=== PATIENT | female | born 1980 | race Two or more races ===

== ENCOUNTER → 2018-09-21 | Outpatient (CLI) | payer OTHER ==
--- NOTE | 2018-09-21 14:56 | REP ---
Right foot series: Four views. History: Injury. Findings: Four views of the right foot demonstrate plantar calcaneal spurring. Overall mineralization pattern is normal. Bones, joints and soft tissues are otherwise unremarkable. Impression: Plantar heel spur. No acute bony abnormality. Electronically Signed by Zion Honeycutt MD 09/21/2018 04:58 P
== END ==
LOC: M LRY 13:13
PROVIDERS: ATTEND Physician Assistant
DX: M77.31 Calcaneal spur, right foot (principal); S99.921A Unspecified injury of right foot, initial encounter; X58.XXXA Exposure to other specified factors, initial encounter; Y92.9 Unspecified place or not applicable
CPT/HCPCS: 73630; G0463

== ENCOUNTER → 2019-01-10 | Outpatient (REF) | payer OTHER | LOC: M SFHCLERA 11:17 | PROVIDERS: ATTEND Nurse Practitioner Family | DX: J02.9 Acute pharyngitis, unspecified (principal) ==

== ENCOUNTER 2020-11-10 19:05 | Emergency (ER) | payer OTHER ==
[~2020-11-10] VITALS: Ht 160 cm; Wt 70.5 kg
--- OUTSIDE RECORDS SUMMARY | 2020-11-10 19:11 | CCD ---
Author Author [facility] Organization [facility] Address Unknown Phone Unavailable Care Team Providers Care Welding Manager Name Role Phone Yoli AGUILLON MD Unavailable Unavailable Yoli AGUILLON MD Unavailable Unavailable Yoli AGUILLON MD Unavailable Unavailable Yoli AGUILLON MD Unavailable Unavailable Yoli AGUILLON MD Unavailable Unavailable Yoli AGUILLON MD Unavailable Unavailable Yoli AGUILLON MD Unavailable Unavailable Yoli AGUILLON MD Unavailable Unavailable Yoli AGUILLON MD Unavailable Unavailable Yoli AGUILLON MD Unavailable Unavailable Yoli AGUILLON MD Unavailable Unavailable Yoli AGUILLON MD Unavailable Unavailable Yoli AGUILLON MD Unavailable Unavailable Yoli AGUILLON MD Unavailable Unavailable Yoli AGUILLON MD Unavailable Unavailable Yoli AGUILLON MD Unavailable Unavailable Yoli AGUILLON MD Unavailable Unavailable Yoli AGUILLON MD Unavailable Unavailable Yoli AGUILLON MD Unavailable Unavailable Yoli AGUILLON MD Unavailable Unavailable Yoli AGUILLON MD Unavailable Unavailable Yoli AGUILLON MD Unavailable Unavailable Yoli AGUILLON MD Unavailable Unavailable Yoli AGUILLON MD Unavailable Unavailable Yoli AGUILLON MD Unavailable Unavailable Yoli AGUILLON MD Unavailable Unavailable Yoli AGUILLON MD Unavailable Unavailable Yoli AGUILLON MD Unavailable Unavailable Yoli AGUILLON MD Unavailable Unavailable Yoli AGUILLON MD Unavailable Unavailable Yoli AGUILLON MD Unavailable Unavailable Yoli AGUILLON MD Unavailable Unavailable Yoli AGUILLON MD Unavailable Unavailable Yoli AGUILLON MD Unavailable Unavailable Yoli AGUILLON MD Unavailable Unavailable Yoli AGUILLON MD Unavailable Unavailable Yoli AGUILLON MD Unavailable Unavailable Re-disclosure Warning The records that you are about to access may contain information from federally-assisted alcohol or drug abuse programs. If such information is present, then the following federally mandated warning applies: This information has been disclosed to you from records protected by federal confidentiality rules (42 CFR part 2). The federal rules prohibit you from making any further disclosure of this information unless further disclosure is expressly permitted by the written consent of the person to whom it pertains or as otherwise permitted by 42 CFR part 2. A general authorization for the release of medical or other information is NOT sufficient for this purpose. The Federal rules restrict any use of the information to criminally investigate or prosecute any alcohol or drug abuse patient.The records that you are about to access may contain highly sensitive health information, the redisclosure of which is protected by Article 27-F of the [facility] Public Health law. If you continue you may have access to information: Regarding HIV / AIDS; Provided by facilities licensed or operated by the [facility] Office of Mental Health; or Provided by the [facility] Office for People With Developmental Disabilities. If such information is present, then the following [facility] mandated warning applies: This information has been disclosed to you from confidential records which are protected by state law. State law prohibits you from making any further disclosure of this information without the specific written consent of the person to whom it pertains, or as otherwise permitted by law. Any unauthorized further disclosure in violation of state law may result in a fine or assisted sentence or both. A general authorization for the release of medical or other information is NOT sufficient authorization for further disc losure. Family History Family Member Name Family Member Gender Family Member Status Date o f Status Description Data Source(s) Unknown Unknown Problem [facility] ([facility]) Encounters Encounter Providers Location Date Indications Data Source(s ) Outpatient Attender: MATTI AGUILLON MD 2020 11:55:00 AM EST - 11/10/2020 12:55:00 PM [facility] Insurance Providers Payer name Policy type / Coverage type Policy ID Covered green party ID Covered green party's relationship to arevalo Policy Arevalo Plan Information [facility] [id number] [facility] [id number] [facility] [employer] - O/P [id number] 01 [id number] ANSI-Not a Secondary Insurance [id number] ANSI-Not a Secondary Insurance [id number] [place] [id number] Commercial [id number] Family Dependent [id number]
[2020-11-10 20:33] LABS: BASO % 0.4 % (0.0-1.0); EOS # 0.2 10^3/uL (0.0-0.5); EOS % 2.9 % (0.0-3.0); HEMATOCRIT 42.3 % (36.0-47.0); HEMOGLOBIN 13.8 g/dl (12.0-15.5); LYMPH # 2.6 10^3/uL (1.5-5.0); LYMPH % 32.9 % (24.0-44.0); MEAN CORPUSCULAR HEMOGLOBIN 29.9 pg (27.0-33.0); MEAN CORPUSCULAR HGB CONC 32.6 g/dl (32.0-36.5); MEAN CORPUSCULAR VOLUME 91.6 fl (80.0-96.0); MONO # 0.6 10^3/uL (0.0-0.8); MONO % 7.3 % (0.0-5.0); NEUTROPHILS # 4.5 10^3/uL (1.5-8.5); NEUTROPHILS % 56.2 % (36.0-66.0); PLATELET COUNT, AUTOMATED 205 10^3/uL (150-450); RED BLOOD COUNT 4.62 10^6/uL (4.00-5.40)
--- OUTSIDE RECORDS SUMMARY | 2020-11-10 20:35 | CCD ---
Author Author [facility] Organization [facility] Address Unknown Phone Unavailable Care Team Providers Care Emt Dispatcher Name Role Phone Yoli AGUILLON MD Unavailable [...] is protected by Article 27-F of the [facility] Public Health law. If you continue you may have access to information: Regarding HIV / AIDS; Provided by facilities licensed or operated by the [facility] Office of Mental Health; or Provided by the [facility] Office for People With Developmental Disabilities. If such information is present, then the following [facility] mandated warning applies: This information has [...] law may result in a fine or retirement sentence or both. A general authorization for [...] 11:55:00 AM EST - 11/10/2020 12:55:00 PM EST [facility] Insurance Providers Payer name Policy type / Coverage type Policy ID Covered libertarian ID Covered libertarian's relationship to arevalo Policy Arevalo Plan Information [employer] [facility] [id number] [facility] [id number] [employer] - O/P [id number] 01 [id number] ANSI-Not a Secondary Insurance [id number] ANSI-Not a Secondary Insurance [id number] [place] [address] Commercial [id number] Family Dependent [id number]
[2020-11-10 21:01] LABS: ALBUMIN 3.6 GM/DL (3.2-5.2); BILIRUBIN,DIRECT 0.2 MG/DL (0.0-0.2); BILIRUBIN,TOTAL 0.4 MG/DL (0.2-1.0); TOTAL PROTEIN 6.9 GM/DL (6.4-8.2)
[2020-11-10 22:11] VITALS: BP 112/60
== END 2020-11-10 22:16 | disposition home or self-care (01) ==
LOC: M ED 19:05
DX: R10.9 Unspecified abdominal pain (principal)

== ENCOUNTER → 2021-01-19 | Outpatient (CLI) | payer OTHER ==
--- NOTE | 2021-01-19 11:02 | REP ---
INDICATION: RIGHT UPPER QUADRANT REBOUND ABDOMINAL TENDERNESS. COMPARISON: None TECHNIQUE/RADIOTRACER AND DOSE: FOLLOWING THE INTRAVENOUS ADMINISTRATION OF 6.6 MCI TECHNETIUM 99 M-MEBROFENIN, MULTIPLE IMAGES OF THE RIGHT UPPER QUADRANT ARE PERFORMED FOR 60 MINUTES. NEXT 8 OZ OF ENSURE ENLIVE IS INGESTED AND FURTHER IMAGING IS PERFORMED FOR 65 MINUTES. FINDINGS: THE GALLBLADDER IS VISUALIZED AT 15 MINUTES POST INJECTION. THERE IS BILIARY TO BOWEL TRANSIT AT 25 POST INJECTION. THERE IS NO SCINTIGRAPHIC EVIDENCE OF CHOLECYSTITIS. GALLBLADDER EJECTION FRACTION IS CALCULATED TO BE 72% WHICH IS NORMAL. IMPRESSION: NORMAL GALLBLADDER EJECTION FRACTION. <Electronically signed by Paddy Tamez > 01/19/21 [id number]
== END ==
LOC: M RAD 08:02
PROVIDERS: ATTEND Surgery
DX: R10.821 Right upper quadrant rebound abdominal tenderness (principal)
CPT/HCPCS: 78227; A9537